=== PATIENT | female | born 1975 | race Caucasian/White ===

== ENCOUNTER 2022-08-24 16:44 | Emergency (ER) | payer OTHER, SELFPAY ==
--- NOTE | ~2022-08-24 | XR_ITS ---
EXAM: XR wrist RT min 3V DATE: 08/24/2022 17:20 HISTORY: FELL 2 DAYS AGO. PAIN TO MEDIAL RT WRIST . COMPARISON: None available. FINDINGS: Normal mineralization. No fracture or dislocation. No lytic or blastic lesion. Joint space s are maintained. No erosion or periosteal change. Soft tissues within normal limits. IMPRESSION: No acute osseous finding in the right wrist. Reviewed, dictated and finalized at location K. 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
--- NOTE | ~2022-08-24 | XR_ITS ---
EXAMINATION: XR ribs LT 2V Exam Date/Time: 08/24/2022 17:05 BIOLOGIST AIDE HISTORY: FELL 2 DAYS AGO, PAIN LT LATERAL RIBS Comparison: 10/12/2017. RESULT: Lines, tubes, and devices: None. Lungs and pleura: Clear. Cardiomediastinal silhouette: Stable. Other: No acute osseous or upper abdominal finding. IMPRESSION: No acute cardiopulmonary process. No acute osseous finding in the left ribs. Reviewed, dictated and finalized at location K. OGIST AIDE
--- NOTE | 2022-08-24 16:49 | ED.UPPEXIN ---
HPI - Extremity Injury (Upper) General Chief Complaint: Extremity Injury, Upper Stated Complaint: rt wrist pain,fall Time Seen by Provider: 08/24/22 16:49 Source: patient Mode of arrival: ambulatory Limitations: no limitations History of Present Illness HPI narrative: Shaina is a 47-year-old female patient presenting to clinic today with complaints of right wrist pain and left rib pain after falling 2 days ago. She reports she landed on her right side injuring the right wrist and she believes that her left arm was tucked in causing an injury to her left rib. Has pain and tenderness to the left lateral lower ribs and to the ulnar aspect of the right wrist. She denies hitting her head or any loss of consciousness. She denies any neck pain. Blood pressure is high in the clinic however she states that she has white coat syndrome. Related Data Home Medications Medication Instructions Recorded Confirmed norethindrone 1 mg-ethinyl tablet 08/24/22 estradiol 35 mcg tablet (Nortrel) Allergies Allergy/AdvReac Type Severity Reaction Status Date / Time No Known Allergies Allergy Verified 08/24/22 17:02 Review of Systems Review of Systems: Pertinent positives per HPI. Patient denies any fever, chills, rash, headache, visual changes, dizziness, cough, runny nose, sore throat, shortness of breath, chest pain, palpitations, nausea, vomiting, diarrhea, constipation, abdominal pain, or any urinary issues. PMFSH Comments At the time of my signature, I reviewed and agree with the nursing past medical, surgical, social, and family history. There is no relevant family history pertinent to the patient complaint. Exam Narrative: General: Well-developed, obese, in no apparent distress Head: Normocephalic, atraumatic. Cardio: Regular rate and rhythm, s1 and s2 normal, no murmur appreciated. Resp: Clear to auscultation bilaterally, no rhonchi, rales, wheezing or rubs. Musculoskeletal: No deformity, mild swelling to the right hand and wrist, tender to palpation over the ulnar aspect of the right wrist, discomfort with ulnar and radial deviation as well as flexion extension of the right wrist, limited range of motion due to pain, tender to palpation over the lower the left left lateral anterior rib, muscle strength strong and equal, peripheral pulse strong, no cyanosis, normal gait and station Course Course Emergency Course: Portions of this record may have been created with voice recognition software. Level of Care: Express Care Visit Vital Signs Vital signs: Vital Signs Temperature 36.4 C 08/24/22 16:56 Pulse Rate 83 08/24/22 16:56 Respiratory Rate 16 08/24/22 16:56 Blood Pressure 163/102 H 08/24/22 16:56 Pulse Oximetry 100 08/24/22 16:56 Oxygen Delivery Room Air 08/24/22 16:56 Temperature 36.4 C 08/24/22 16:56 Pulse Rate 83 08/24/22 16:56 Respiratory Rate 16 08/24/22 16:56 Blood Pressure 163/102 H 08/24/22 16:56 Pulse Oximetry 100 08/24/22 16:56 Oxygen Delivery Room Air 08/24/22 16:56 Vital signs reviewed MDM - Extremity Injury (Upper) MDM Narrative Medical decision making narrative: At the time of visit patient is resting comfortably on the exam table. X-ray of the left ribs and right wrist were completed without sign of any fracture or malalignment. I suspect patient has a right wrist sprain and left rib contusion. Supportive measures were discussed with the patient she voiced understanding discharge instructions agrees to treatment plan Differential Diagnosis Differential diagnosis: Likely sprain and strain of wrist, fracture of wrist and other (Rib fracture, rib contusion) Imaging Data Radiologist's impression: [address] [address] XRay Report Signed Patient: Shaina Mayfield : 1975 MR#: [id number] Age/Sex: 47 / F Acct:[id number] Loc: [facility]? ? ADM Date: 08/24/22Attending Dr: Lala
[2022-08-24 16:56] VITALS: BP 163/102; PULSE 83; RESP 16; TEMP 36.4; O2SAT 100
== END 2022-08-24 17:48 | disposition home or self-care (01) ==
PROVIDERS: Emergency Provider Nurse Practitioner Family
DX: S63.501A Unspecified sprain of right wrist, initial encounter (principal); W18.30XA Fall on same level, unspecified, initial encounter; S20.222A Contusion of left back wall of thorax, initial encounter; W19.XXXA Unspecified fall, initial encounter
CPT/HCPCS: 71100; 73110; 99214; G0463